=== PATIENT | female | born 1980 | race Caucasian/White ===

== ENCOUNTER 2017-12-28 14:06 | Emergency (ER) | payer SELFPAY ==
[2017-12-28] MEDS ORDERED: LIDOCAINE 4%/TETRACAINE 0.5%/EPI 0.18% 5 ML TOPICAL SOLN TOP ONE (14:46)
--- NOTE | 2017-12-28 14:48 | ER Document Report ---
ED Medical Screen (RME) - General Chief Complaint: Facial Injury Stated Complaint: HEAD TRAUMA Time Seen by Provider: 12/28/17 14:33 TRAVEL OUTSIDE OF THE [place] IN LAST 30 DAYS: No - HPI Notes: 12/28/17 14:47 Patient fell through her porch last night and laceration to the forehead and bridge of the nose it is continues to bleed patient has 1 butterfly reviewed laceration. Denies any other symptoms - Related Data Allergies/Adverse Reactions: doxycycline Allergy (Verified 12/28/17 14:09) Past Medical History - Social History Chew tobacco use (# tins/day): No Frequency of alcohol use: Social Drug Abuse: Marijuana Renal/ Medical History: Denies: Hx Peritoneal Dialysis Past Surgical History: Reports: Hx Section - 2001 Review of Systems - Review of Systems Constitutional: Other - Facial laceration Physical Exam - HEENT Head: Normocephalic, Atraumatic - Facial laceration Doctor's Discharge - Discharge Referrals: LOCALMD,NO [Primary Care Provider] - Follow up as needed
--- NOTE | 2017-12-28 15:19 | ER Document Report ---
HPI - HPI Pain Level: 3 Notes: Patient is a 37-year-old female no significant past medical history who presents to the ED complaining of a laceration to the forehead and bridge of her nose superiorly status post injury last evening about 17 hours ago. Patient states that she stepped through her porch and hit her head off of the wood. Patient states that there were no missing pieces to the would otherwise she is aware of. Patient states that she does have pain to the front side of her head and around her eyes with some swelling. She did not lose consciousness. Patient states that she does have a little bit of nausea with the pain, but no vomiting. Patient states that she is eating and drinking without any difficulties. She is able to ambulate without any difficulties as well. No other concerns or complaints. She is not on any blood thinners. Denies any fever, neck pain, changes in vision/speech/mentation/hearing, URI, sore throat, chest pain, palpitations, syncope, cough, shortness of breath, wheeze, dyspnea, abdominal pain, nausea/vomiting/diarrhea, urinary retention, dysuria, hematuria, loss of control of bowel or bladder, numbness/tingling, saddle anesthesia, muscle paralysis/weakness, or rash. - ROS Systems Reviewed and Negative: Yes All other systems reviewed and negative - DERM Skin Color: Normal Past Medical History - Social History Smoking Status: Current Every Day Smoker Chew tobacco use (# tins/day): No Frequency of alcohol use: Social Drug Abuse: Marijuana Family History: Reviewed & Not Pertinent Patient has suicidal ideation: No Patient has homicidal ideation: No Renal/ Medical History: Denies: Hx Peritoneal Dialysis Past Surgical History: Reports: Hx Section - 2001 Vertical Provider Document - CONSTITUTIONAL Agree With Documented VS: Yes Notes: PHYSICAL EXAMINATION: GENERAL: Well-appearing, well-nourished and in no acute distress. A&Ox4. Answers questions appropriately. HEAD: Atraumatic, normocephalic. Non-tender. no bogginess or hematoma. EYES: Pupils equal round and reactive to light, extraocular movements intact, sclera anicteric, conjunctiva are normal. There is some swelling around her rt orbit and left medial orbit. No entrapment. Vis aguirre intact. + mild tenderness around the orbit medially bilaterally. ENT: EAC clear b/l. TM's intact b/l without erythema, fluid, or perforation. Nares patent and without discharge. oropharynx clear without exudates. No tonsilar hypertrophy or erythema. Moist mucous membranes. No sinus tenderness. No obvious hemotympanum/CSF discharge. NECK: Normal range of motion, supple without lymphadenopathy. No rigidity. No midline tenderness. NEXUS negative. LUNGS: Breath sounds clear to auscultation bilaterally and equal. No wheezes rales or rhonchi. HEART: Regular rate and rhythm without murmurs, rubs, gallops. ABDOMEN: Soft, nontender, nondistended abdomen. No guarding, no rebound. No masses appreciated. Normal bowel sounds present. No CVA tenderness bilaterally. Musculoskeletal: Ext b/l: FROM to passive/active. Strength 5+/5. No deficits noted. No bony tenderness of extremities. Back: FROM to passive/active. Strength 5+/5. No vertebral point tenderness, stepoffs, or deformities. No other bony tenderness or ecchymosis. SLR negative b/l. Extremities: No cyanosis, clubbing, or edema b/l. Peripheral pulses 2+. Capillary refill less than 2 seconds. NEUROLOGICAL: NIH 0. GCS 15. Cranial nerves grossly intact. Normal speech, normal gait. Normal sensory, motor exams. Reflexes 2+ b/l. MYRTLE's negative. Pronator drift negative. PSYCH: Normal mood, normal affect. SKIN: anteroinferior forehead/bridge of nose superiorly: there is a 3cm superficial irregular laceration noted with scabbing. Scant bloody/serous discharge. - INFECTION CONTROL TRAVEL OUTSIDE OF THE [place] IN LAST 30 DAYS: No Course - Re-evaluation Re-evalutation: 12/28/17 16:27 Patient is found to have a pneumocephalus on CT scan with frontal bone facial fractures extending into the orbital roof and sinus bilaterally. I did notify [facility] who accepted patient is a trauma transfer, Dr. Saleem. I also spoke with the neurosurgery [place] hospital monitor Mr. Medina to let him know that this case was coming their way. I did speak with the patient who is in agreement with this plan. Labs ordered and tetanus was provided. Patient would not allow for adequate wound cleaning. Pt does have very scant clear rhinorrhea noted when she leans forward and is not there when she sits straight up/back. Patient has no new concerns or complaints. Pt is neurologically grossly intact at this time. Vitals acceptable. 12/28/17 17:45 Transport has arrived. pt has no new concerns or complaints. Vitals acceptable. Pt stable for transport. - Laboratory Result Diagrams: 12/28/17 16:20 12/28/17 16:20 Discharge - Discharge Clinical Impression: Pneumocephalus Fracture, facial bones Qualifiers: Encounter type: initial encounter Facial bone/location: unspecified facial bone Fracture type: open Qualified Code(s): S02.92XB - Unspecified fracture of facial bones, initial encounter for open fracture Condition: Stable Disposition: [facility] Referrals: LOCALMD,NO [NO LOCAL MD] - Follow up as needed
[2017-12-28] MEDS ORDERED: DIPH/PERTUSS(ACELL)/TETANUS VAC/PF 0.5 ML SYR (>=10YO) IM ONE (15:21)
--- NOTE | 2017-12-28 15:21 | RADIOLOGY REPORT (SQ) ---
EXAM DESCRIPTION: CT HEAD WITHOUT COMPLETED DATE/TIME: 12/28/2017 3:02 pm REASON FOR STUDY: trauma COMPARISON: None. TECHNIQUE: Axial images acquired through the brain without intravenous contrast. Images reviewed wi th bone, brain and subdural windows. Additional sagittal and coronal reconstructions were generated. Images stored on PACS. All CT scanners at this facility use dose modulation, iterative reconstruction, and/or weight based d osing when appropriate to reduce radiation dose to as low as reasonably achievable (ALARA). [facility]: Dose Right [facility]: CareDose [facility]: Dose Right [facility]: Teradose 4D [facility]: [employer] RADIATION DOSE: mGy. LIMITATIONS: None. FINDINGS: VENTRICLES: Normal size and contour. CEREBRUM: No masses. No hemorrhage. No midline shift. No evidence for acute infarction. Normal gra y/white matter differentiation. No areas of low density in the white matter. CEREBELLUM: No masses. No hemorrhage. No alteration of density. No evidence for acute infarction. EXTRAAXIAL SPACES: A small amount of intracranial air is identified in the left frontal region adjace nt to the bony calvaria superiorly which presumably is related to the facial trauma. ORBITS AND GLOBE: See results under facial CT scan CALVARIUM: No fracture. PARANASAL SINUSES: See results under facial CT scan SOFT TISSUES: See results under facial CT scan OTHER: No other significant finding. IMPRESSION: Intracranial air is identified in the left frontal region which presumably is related to the facial trauma. Clinical correlation is recommended. No other significant intracranial abnormal ities were identified. Other findings as noted above EVIDENCE OF ACUTE STROKE: NO. COMMENT: Quality ID # [id number]: Final reports with documentation of one or more dose reduction techniques (e.g., Automated exposure control, adjustment of the mA and/or kV according to patient size, use of iterative reconstruction technique) TECHNICAL DOCUMENTATION: JOB ID: [id number] [employer]- All Rights Reserved Reading location - IP/workstation name: [email or web address]
--- NOTE | 2017-12-28 15:24 | RADIOLOGY REPORT (SQ) ---
EXAM DESCRIPTION: CT FACIAL AREA WITHOUT COMPLETED DATE/TIME: 12/28/2017 3:03 pm REASON FOR STUDY: trauma COMPARISON: None. TECHNIQUE: Noncontrasted images through the facial bones and orbits windowed for bone and soft tissu e. Additional coronal and sagittal reconstructed images reviewed. All images stored on PACS. All CT scanners at this facility use dose modulation, iterative reconstruction, and/or weight based d osing when appropriate to reduce radiation dose to as low as reasonably achievable (ALARA). [facility]: Dose Right [facility]: CareDose [facility]: Dose Right [facility]: Teradose 4D [facility]: [employer] RADIATION DOSE: mGy. LIMITATIONS: None. FINDINGS: FACIAL BONES: Comminuted nasal fractures with displacement to left of midline. Fractures through both anterior medial orbital cortez extending into the orbital roof and frontal sinuses. Nond isplaced fracture through the anterior midline maxilla. ORBITS: Intraorbital gas. No evidence of extraocular muscle entrapment. INFERIOR BRAIN: See separate report of the same date. OTHER: No other significant finding. IMPRESSION: Anterior facial bone fractures extending into the orbital roof and frontal sinus bilater ally. No evidence of extraocular muscle entrapment. TECHNICAL DOCUMENTATION: JOB ID: [id number] Quality ID # [id number]: Final reports with documentation of one or more dose reduction techniques (e.g., Au tomated exposure control, adjustment of the mA and/or kV according to patient size, use of iterative reconstruction technique) 2010 [employer]- All Rights Reserved Reading location - IP/workstation name: [email or web address]
[2017-12-28] MEDS ORDERED: MORPHINE SULFATE 10 MG/ML INJ IV ONE (16:18)
[2017-12-28] MEDS ORDERED: NICOTINE 21 MG/24 HR PATCH.TD24 TD ONE (16:18)
[2017-12-28] MEDS ORDERED: LORAZEPAM INJ 2 MG/1 ML VIAL IV ONE (16:18)
[2017-12-28 16:38] LABS: ABSOLUTE EOSINOPHILS # (AUTO) 0.1 10^3/uL (0.0-0.6); ABSOLUTE LYMPHOCYTES (AUTO) 1.7 10^3/uL (0.5-4.7); ABSOLUTE NEUT (AUTO) 9.6 10^3/uL (1.7-8.2); BASOPHILS % (AUTO) 0.4 % (0-2); EOSINOPHILS % (AUTO) 0.6 % (0-6); HEMATOCRIT 42.2 % (36.0-47.0); HEMOGLOBIN 14.6 g/dL (12.0-15.5); LYMPHOCYTES % (AUTO) 13.9 % (13-45); MEAN CORPUSCULAR HEMOGLOBIN 32.9 pg (27.0-33.4); MEAN CORPUSCULAR HGB CONC 34.6 g/dL (32.0-36.0); MEAN CORPUSCULAR VOLUME 95 fl (80-97); MONOCYTES % (AUTO) 7.9 % (3-13); PLATELET COUNT 296 10^3/uL (150-450); RED BLOOD COUNT 4.44 10^6/uL (3.72-5.28); RED CELL DISTRIBUTION WIDTH 12.6 % (11.5-14.0); SEGMENTED NEUTROPHILS % (AUTO) 77.2 % (42-78); TOTAL CELLS COUNTED % (AUTO) 100 %; WHITE BLOOD COUNT 12.5 10^3/uL (4.0-10.5)
[2017-12-28 16:43] LABS: PROTHROMBIN TIME 13.7 SEC (11.4-15.4)
[2017-12-28 16:44] LABS: PARTIAL THROMBOPLASTIN TIME 28.5 SEC (23.5-35.8)
[2017-12-28 16:50] VITALS: BP 118/72
[2017-12-28 17:30] LABS: ALANINE AMINOTRANSFERASE 25 U/L (9-52); ALBUMIN 4.2 g/dL (3.5-5.0); ALKALINE PHOSPHATASE 51 U/L (38-126); ANION GAP 12 (5-19); ASPARTATE AMINO TRANSFERASE 19 U/L (14-36); BILIRUBIN,DIRECT 0.3 mg/dL (0.0-0.4); BILIRUBIN,TOTAL 0.7 mg/dL (0.2-1.3); BLOOD UREA NITROGEN 8 mg/dL (7-20); CALCIUM 9.4 mg/dL (8.4-10.2); CARBON DIOXIDE 26 mmol/L (22-30); CHLORIDE 103 mmol/L (98-107); GLUCOSE 107 mg/dL (75-110); POTASSIUM 3.7 mmol/L (3.6-5.0); SODIUM 141.3 mmol/L (137-145)
[2017-12-28 17:32] LABS: ALCOHOL < 10 mg/dL (NONE DETECTED)
[2017-12-28 17:59] LABS: APPEARANCE,URINE SLIGHTLY-CLOUDY; BILIRUBIN,URINE NEGATIVE (NEGATIVE); COLOR,URINE YELLOW; GLUCOSE, URINE NEGATIVE (NEGATIVE); KETONES,URINE NEGATIVE (NEGATIVE); LEUKOCYTE ESTERASE,URINE SMALL (NEGATIVE); NITRITE,URINE NEGATIVE (NEGATIVE); PROTEIN,URINE NEGATIVE (NEGATIVE); URINE SPECIFIC GRAVITY 1.018; UROBILINOGEN,URINE NEGATIVE mg/dL (<2.0)
[2017-12-28 18:09] LABS: URINE AMPHETAMINES SCREEN NEGATIVE; URINE BARBITURATES SCREEN NEGATIVE; URINE BENZODIAZEPINES SCREEN NEGATIVE; URINE COCAINE SCREEN NEGATIVE; URINE MARIJUANA (THC) SCREEN UNCONFIRMED POSITIVE; URINE METHADONE SCREEN NEGATIVE; URINE PHENCYCLIDINE SCREEN NEGATIVE
== END 2017-12-28 17:35 | disposition short-term general hospital (02) ==
LOC: ER 14:06
DX: S02.2XXB Fracture of nasal bones, initial encounter for open fracture (principal); S02.82XA Fracture of other specified skull and facial bones, left side, initial encounter for closed fracture; S02.81XA Fracture of other specified skull and facial bones, right side, initial encounter for closed fracture; G93.89 Other specified disorders of brain; W13.3XXA Fall through floor, initial encounter; R11.0 Nausea; F17.200 Nicotine dependence, unspecified, uncomplicated; F12.10 Cannabis abuse, uncomplicated; J34.89 Other specified disorders of nose and nasal sinuses; Z23 Encounter for immunization
CPT/HCPCS: 99284; 90471; 96374; 96375; 36415; 80307 ×2; 85025; 85610; 85730; 80053; 81001; 70450; 70486; 90715; J2270; J2060; J3490